=== PATIENT | female | born 1975 | race Caucasian/White ===

== ENCOUNTER → 2017-02-02 | Outpatient (CLI) | payer BC ==
[~2017-02-02] MED LIST: PAMELOR25 M1 PO; PREMARIN0.9 MG PO; PRILOSEC10 MG PO
[2017-02-02 16:13] VITALS: BP 130/85
== END ==
LOC: VAS 16:03
DX: R00.0 Tachycardia, unspecified (principal); F17.210 Nicotine dependence, cigarettes, uncomplicated

== ENCOUNTER 2025-02-18 10:47 | Emergency (ER) | payer OTHER ==
[~2025-02-18] VITALS: Ht 170.2 cm; Wt 73.2 kg
[~2025-02-18 10:47] MED LIST changes: +ASPIRIN E.C. 8181 MG PO; +CELEXA 20MG20 MG/TA1 PO; +FLOMAX0.4 MG PO; +LIPITOR 40MG TA40 MG PO; +PERCOCET 325 MG1 TA2 PO; +PRILOSEC 20MG20 MG PO; -PRILOSEC10 MG PO; +PROMETHAZINE12.5 M5 PO; +ZOFRAN ODT4 MG PO
[2025-02-18] MEDS ORDERED: AMOXICILLIN AND1 TA2 PO (11:20)
[2025-02-18] MEDS ORDERED: Amoxicillin/Clavulanate K+ 875/125 MG TAB PO ONE ×2 (11:30)
[2025-02-18 11:31] VITALS: BP 134/82
== END 2025-02-18 11:31 | disposition home or self-care (01) ==
LOC: ED 10:47
DX: K05.219 Aggressive periodontitis, localized, unspecified severity (principal)